=== PATIENT | male | born 1990 | race African-American/Black ===

== ENCOUNTER 2019-01-03 12:00 | Emergency (ER) | payer SELFPAY ==
[~2019-01-03] VITALS: Ht 188 cm; Wt 88.9 kg
[2019-01-03] MEDS ORDERED: ACETAMINOPHEN ES 500 MG TABLET PO ONE (12:30)
[2019-01-03 13:30] VITALS: BP 134/88
[2019-01-03] MEDS ORDERED: ACETAMINOPHEN ES 500 MG TABLET ONE (13:30)
== END 2019-01-03 13:35 | disposition home or self-care (01) ==
LOC: ER 12:03
DX: S16.1XXA Strain of muscle, fascia and tendon at neck level, initial encounter (principal); S09.8XXA Other specified injuries of head, initial encounter; Z98.890 Other specified postprocedural states; V49.49XA Driver injured in collision with other motor vehicles in traffic accident, initial encounter; Y93.89 Activity, other specified; Y92.413 State road as the place of occurrence of the external cause; Y99.8 Other external cause status
CPT/HCPCS: 70450-TC; 72040-TC